=== PATIENT | male | born 1985 | race Caucasian/White ===

== ENCOUNTER 2020-03-26 17:16 | Emergency (ER) | payer BC, SELFPAY ==
[2020-03-26 17:59] VITALS: BP 144/86; PULSE 99; RESP 18; O2SAT 99; BMI 23.7
--- NOTE | 2020-03-26 18:09 | HMH.EDUTC ---
[facility] [place] Disposition Clinical Impression: Exposure to COVID-19 virus Disposition: Home, Self-Care Condition on Discharge: Good Instructions: Preventing the Spread of Coronavirus Discharge Instructions Additional Instructions: Drink plenty of fluids. Take tylenol for pain or fever. Follow up with your regular doctor. GO TO THE ER FOR ANY WORSENING SYMPTOMS Referrals: Jake Mckay MD [Primary Care Provider] - Time of Disposition: 18:10 Medical Decision Making - Medical Records Medical records reviewed: No: I reviewed the patient's medical records. - Calvin Inquiry Pt receiving controlled substance: No Vital Signs: 03/26/20 17:59 03/26/20 18:27 Temperature 98.1 F Temperature Source Oral Pulse Rate 99 H Pulse Rate [Radial] 99 H Respiratory Rate 18 18 Blood Pressure 144/86 H Blood Pressure [Right Arm] 144/86 H Blood Pressure Mean [Right Arm] 105 Blood Pressure Source Automatic Cuff Blood Pressure Source [Right Arm] Automatic Cuff Blood Pressure Position Sitting Blood Pressure Position [Right Arm] Sitting 02 Sat by Pulse Oximetry 99 Oxygen Delivery Method Room Air Room Air Orders (Tests/Meds): ORDERS Category Date Time Status Covid-19 Nasal PCR ([facility]) Routine Lab 03/26/20 17:44 Received [facility] [place] HPI - General Stated complaint: COVID TEST No symptoms Time Seen by Provider: 03/26/20 18:09 Mode of Arrival: Ambulatory Source of Information: Patient Limitations: No Limitations Description of Symptoms (Recalled from Triage Doc. by RN): covid test HEENT Symptoms (Recalled from RN notes): No Resp Symptoms (Recalled from RN notes): No Skin Symptoms (Recalled from RN notes): No MS Symptoms (Recalled from RN notes): No Functional Status (Recalled from RN notes): wnl - History of Present Illness Provider Complaint: He was exposed to covid thru a coworker. He has no symptoms. - Related Data Previous Rx's Medication Instructions Recorded Triamcinolone Acetonide [Kenalog 1 applicatio TOPICAL TID PRN #30 03/18/18 0.1% cream 30gm tube] cream..g. Allergies Allergy/AdvReac Type Severity Reaction Status Date / Time No Known Allergies Allergy Verified 03/18/18 19:22 - Worker's Comp Is this a Worker's Comp case?: No [facility] History - Hepatitis A Screen Drug use history?: No High risk sexual behaviors?: No History of sexually transmitted infection?: No Currently employed?: No Childcare worker?: No Do you have indoor plumbing?: Yes Do you have electricity?: Yes Attestation statement:: This patient has been screened for Hepatitis A risk factors. I have reviewed the patient's past medical history: Yes Medical History: Denies:: Diabetes Mellitus Type 1, Diabetes Mellitus Type 2, Hypertension Other Surgeries: Yes: Hernia Repair - Social History Smoking Status: Current every day smoker Tobacco Type: cigarettes # Packs/Day (cigarettes): 1 Alcohol Intake: never Occupational Status: employed Housing: house ROS Obtained: Yes All systems reviewed & no additional complaints - Constitutional Constitutional: Reports system reviewed and no additional complaints, except as docu - Eyes Eyes: Reports system reviewed and no additional complaints, except as docu - ENT Ears, Nose, Mouth, and Throat: Reports system reviewed and no additional complaints, except as docu - Cardiovascular Cardiovascular: Reports system reviewed and no additional complaints, except as docu - Respiratory Respiratory: Yes system reviewed and no additional complaints, except as docu - Gastrointestinal Gastrointestingal: Reports: system reviewed and no additional complaints, except as docu Physical Exam - General General appearance: alert, in no apparent distress - Head Head exam: atraumatic, normocephalic, normal inspection - Eye Eye exam: Present: normal appearance, PERRL, EOMI - ENT ENT exam: Present: normal exam, normal oropharynx, mucous membranes moist, TM's normal
[2020-03-26 18:27] VITALS: BP 144/86; PULSE 99; RESP 18; TEMP 36.7; O2SAT 99
== END 2020-03-26 18:28 | disposition home or self-care (01) ==
PROVIDERS: Emergency Provider Nurse Practitioner Family; PCP Family Medicine
DX: Z20.828 Contact with and (suspected) exposure to other viral communicable diseases (principal); F17.210 Nicotine dependence, cigarettes, uncomplicated
CPT/HCPCS: 99201; U0003

== ENCOUNTER 2020-04-02 19:28 | Emergency (ER) | payer BC, SELFPAY ==
[2020-04-02 19:30] VITALS: BP 119/71; PULSE 106; RESP 19; TEMP 38.4; O2SAT 99; BMI 23.7
--- NOTE | 2020-04-02 19:56 | HMH.EDUTC ---
[facility] [place] Clinical Impression: Exposure to COVID-19 virus, Viral syndrome Disposition: Home, Self-Care Condition on Discharge: Good Instructions: DI for Viral Syndrome, Preventing the Spread of Coronavirus Discharge Instructions Additional Instructions: Drink plenty of fluids. Take tylenol for pain or fever. Return if you begin to have difficulty breathing. Follow up with your regular doctor. GO TO THE ER FOR ANY WORSENING SYMPTOMS Referrals: Jake Mckay MD [Primary Care Provider] - Time of Disposition: 19:57 Medical Decision Making - Medical Records Medical records reviewed: No: I reviewed the patient's medical records. - Calvin Inquiry Pt receiving controlled substance: No Vital Signs: 04/02/20 19:30 04/02/20 20:05 Temperature 101.1 F H 101.1 F H Temperature Source Oral Pulse Rate 106 H Pulse Rate [Right Brachial] 106 H Respiratory Rate 19 19 Blood Pressure 119/71 Blood Pressure [Right Arm] 119/71 Blood Pressure Mean [Right Arm] 87 Blood Pressure Source [Right Arm] Automatic Cuff Blood Pressure Position [Right Arm] Sitting 02 Sat by Pulse Oximetry 99 Oxygen Delivery Method Room Air - Lab Data Lab Results 04/02/20 19:45: Influenza Type A Ag Negative, Influenza Type B Ag Negative Orders (Tests/Meds): ED MEDICATIONS Discontinued Medications Generic Name Dose Route Start Last Admin Trade Name Hanna PRN Reason Stop Dose Admin Acetaminophen 1,000 mg 04/02/20 19:58 04/02/20 20:00 Acetaminophen 500mg Tab PO 04/02/20 19:59 1,000 mg ONCE ONE Administration ORDERS Category Date Time Status Covid-19 Nasal PCR Sendout Stat Lab 04/02/20 19:35 [place] [facility] [place] - General Stated complaint: covid test Time Seen by Provider: 04/02/20 19:56 Mode of Arrival: Ambulatory Source of Information: Patient Limitations: No Limitations Description of Symptoms (Recalled from Triage Doc. by RN): PATIENT REQUESTING COVID TEST; NO SYMPTOMS OR KNOWN DIRECT EXPOSURE HEENT Symptoms (Recalled from RN notes): No Resp Symptoms (Recalled from RN notes): No Skin Symptoms (Recalled from RN notes): No MS Symptoms (Recalled from RN notes): No Functional Status (Recalled from RN notes): WNL - History of Present Illness Provider Complaint: He is here needing a covid test. He denies any known exposure. He has been running a fever this evening. He denies any other symptoms. - Related Data Allergies Allergy/AdvReac Type Severity Reaction Status Date / Time No Known Allergies Allergy Verified 03/18/18 19:22 - Worker's Comp Is this a Worker's Comp case?: No [facility] History - Hepatitis A Screen Drug use history?: No High risk sexual behaviors?: No History of sexually transmitted infection?: No Currently employed?: No Childcare worker?: No Do you have indoor plumbing?: Yes Do you have electricity?: Yes Attestation statement:: This patient has been screened for Hepatitis A risk factors. I have reviewed the patient's past medical history: Yes Medical History: Denies:: Diabetes Mellitus Type 1, Diabetes Mellitus Type 2, Hypertension Other Surgeries: Yes: Hernia Repair - Social History Smoking Status: Current every day smoker Tobacco Type: cigarettes # Packs/Day (cigarettes): 1 Alcohol Intake: never Occupational Status: other Housing: house ROS Obtained: Yes All systems reviewed & no additional complaints - Constitutional Constitutional: Denies chills, Reports fever(s) - Eyes Eyes: Reports system reviewed and no additional complaints, except as docu - ENT Ears, Nose, Mouth, and Throat: Reports system reviewed and no additional complaints, except as docu - Cardiovascular Cardiovascular: Reports system reviewed and no additional complaints, except as docu - Respiratory Respiratory: Yes system reviewed and no additional complaints, except as docu - Gastrointestinal Gastrointestingal: Reports: system reviewed and no additional comp
[2020-04-02 20:03] LABS: UTC Influenza A Antigen Negative (Negative); UTC Influenza B Antigen Negative (Negative)
[2020-04-02 20:05] VITALS: BP 119/71; PULSE 106; RESP 19; TEMP 38.4; O2SAT 99
--- NOTE | 2020-04-04 13:13 | PC.NURSE ---
patient notified of positive covid test
[2020-04-04 15:45] LABS: Covid-19 Nasal PCR Sendout UK Detected
== END 2020-04-02 20:06 | disposition home or self-care (01) ==
PROVIDERS: Emergency Provider Nurse Practitioner Family; PCP Family Medicine
DX: U07.1 COVID-19 (principal); F17.210 Nicotine dependence, cigarettes, uncomplicated
CPT/HCPCS: 87804; 99201; U0003

== ENCOUNTER → 2022-02-21 10:00 | Outpatient (CLI) | payer BC, SELFPAY ==
--- NOTE | 2022-02-21 10:13 | XR_ITS ---
FINAL REPORT CLINICAL HISTORY: INJURY TO LOWER BACK,LUMBAGO W/SCIATICA grabbed motor from falling off the [place] and back popped..pain since sunday FINDINGS: LUMBAR SPINE 5 views of the lumbar spine were obtained. There is no evidence of fracture or dislocation. There is mild leftward curvature. The vertebral alignment is normal. There are mild degenerative changes with osteophytes. There is partial sacralization of L5 on the right. No paraspinous soft tissue abnormalities identified. IMPRESSION: Mild degenerative changes with no acute bony abnormality. Reviewed, Interpreted and Dictated by George Hess III, MD Transcribed by Meghan Barlow Authenticated and [facility]
== END ==
PROVIDERS: PCP Nurse Practitioner Family; Visit Provider Nurse Practitioner Family
DX: M54.42 Lumbago with sciatica, left side (principal); M54.41 Lumbago with sciatica, right side; S39.92XA Unspecified injury of lower back, initial encounter
CPT/HCPCS: 72110

== ENCOUNTER → 2022-03-31 16:41 | Outpatient (CLI) | payer BC, SELFPAY ==
--- NOTE | 2022-03-31 16:45 | MR_ITS ---
PROCEDURE INFORMATION: Exam: MR Lumbar Spine Without Contrast Exam date and time: 03/31/2022 5:13 PM Age: 36 years old Clinical indication: Low back pain; Additional info: Low back pain. Pain worse on left side. Left leg pain to feet. TECHNIQUE: Imaging protocol: Magnetic resonance imaging of the lumbar spine without contrast. COMPARISON: CR XR LUMBAR SPINE MIN 4V 02/21/2022 10:34 AM FINDINGS: Bones/joints: There are 5 lumbar type vertebral bodies. There is straightening of normal lumbar lordosis. No acute fracture or suspicious marrow replacing lesion. Spinal cord: The conus terminates at T12-L1. There is multilevel degenerative disc disease with disc desiccation at L2-L3, L3-L4, and L4-L5. T12-L1: No significant disc bulge. No facet arthropathy. No neural foraminal or central canal stenosis. L1-L2: No significant disc bulge. No facet arthropathy. No central canal or neural stenosis. L2-L3: Mild circumferential disc bulge. No facet arthropathy. No central canal or neural foraminal stenosis. L3-L4: Mild circumferential disc bulge. Mild bilateral facet arthropathy. No central canal stenosis. Mild right neural foraminal stenosis. Patent left neural foramen. L4-L5: Severe circumferential disc bulge with left lateral recess disc protrusion. Moderate bilateral facet arthrosis. Mild central canal stenosis. Severe left neural foraminal stenosis. Moderate right neural foraminal stenosis. L5-S1: No significant disc bulge. No facet arthropathy. No neural foraminal or central canal stenosis. Soft tissues: Unremarkable. IMPRESSIONS: At the L4-L5 level, there is severe circumferential disc bulge with left lateral recess disc protrusion with severe left neural foraminal stenosis and moderate right neural foraminal stenosis.
--- NOTE | 2022-03-31 16:57 | XR_ITS ---
PROCEDURE INFORMATION: Exam: XR Orbits, MR Screening Exam date and time: 03/31/2022 4:59 PM Age: 36 years old Clinical indication: Other: Prior HX metal in eyes. ; Additional info: Metals in eyes prior history metal in right eye. Screening for mri. Patient is waiting. TECHNIQUE: Imaging protocol: XR of the orbits. Exam was performed for MR screening. Views: 1 or 2 views COMPARISON: No relevant prior studies available. FINDINGS: Sinuses: Well aerated. No opacification. Bones/joints: No fracture. Soft tissues: Unremarkable. Radiopaque device or foreign body: None. No evidence of device or foreign body. No visible contraindication to MRI on this exam. IMPRESSION: No visible contraindication to MRI on this exam.
== END ==
PROVIDERS: PCP Nurse Practitioner Family; Visit Provider Nurse Practitioner Family
DX: M54.42 Lumbago with sciatica, left side (principal); M54.41 Lumbago with sciatica, right side; H05.53 Retained (old) foreign body following penetrating wound of bilateral orbits
CPT/HCPCS: 70200; 72148; 76376

== ENCOUNTER 2023-11-26 20:09 | Emergency (ER) | payer SELFPAY ==
[2023-11-26 20:10] VITALS: BP 128/73; PULSE 92; RESP 18; TEMP 36.7; O2SAT 99; BMI 23.6
--- NOTE | 2023-11-26 20:20 | PC.NURSE ---
pt has been rounded on and has been hooked up to vitals.
--- NOTE | 2023-11-26 20:28 | ED_ITS ---
Discharge Plan Disposition Patient Disposition: Home, Self-Care Condition: Good Referrals Follow up/Referrals: Mil Sethi DO [Staff Physician] - See instructions Nona Iglesias APRN [Primary Care Provider] - See instructions Activity Restrictions/Add. Instructions Additional Instructions/Restrictions: Please take Tylenol alternating every 4 hours with Motrin as needed for pain and swelling. I have referred you to Dr. Sethi. Please call tomorrow to make an appointment. Return to ER for any worsening signs or symptoms. Clinical Impressions Clinical Impression: Acute pain of right knee Stand Alone Forms Stand Alone Forms: Work/School Release Instructions Patient Instructions: DI for Knee Pain Discharge ED Provider: Alcon Schaffer General Adult HPI <MAIK Cortés - Last Filed: 11/26/23 22:07> General Chief complaint: Extremity Injury, Lower Stated complaint: AO 11/25 RT knee inj Time Seen by Provider: 11/26/23 20:28 History of Present Illness HPI narrative: Patient presents for evaluation of a right knee injury. Patient states he was working today and jumped off a truck landing and felt that his right knee bent toward the inside. He was able to bear weight and finishes working today however he reports decreased ability to bend his or straighten his knee without significant pain. Related Data Allergies Allergy/AdvReac Type Severity Reaction Status Date / Time No Known Allergies Allergy Verified 03/18/18 19:22 PFSH <MAIK Cortés - Last Filed: 11/26/23 22:07> [facility] Disclaimer: The information contained in this section may have been updated after the patient was seen, as this information can be updated by other users. Social History Smoking Status: Current every day smoker tobacco type: cigarettes packs per day: 1 second hand exposure: Yes alcohol intake: never current occupational status: other Travel in the last 8 weeks: None housing: house <MAIK Cortés - Last Filed: 11/26/23 22:07> ROS Obtained: Yes Systems reviewed as appropriate & no additional complaints except as documented Physical Exam <MAIK Cortés - Last Filed: 11/26/23 22:07> General General appearance: alert and in no apparent distress Respiratory Respiratory exam: Present normal lung sounds bilaterally Cardiovascular Cardiovascular exam: Present regular rate and normal rhythm Expanded Lower Extremity Exam Right: Leg image: 2 1. Tenderness to palpation at the joint margins but no bony deformity. More more tender on the medial aspect. No ecchymosis or edema. Knee exam: Present normal inspection, tenderness, swelling, pain with valgus and pain with varus; Absent full ROM, ecchymosis, crepitus, anterior drawer sign or posterior draw sign Neurological Exam Neurological exam: Present alert and oriented X3 Skin Skin exam: Present dry Medical Decision Making <MAIK Cortés - Last Filed: 11/26/23 22:07> Medical Records Medical records reviewed: Yes I reviewed the patient's medical records. Calvin Inquiry Pt receiving controlled substance: No Vital Signs: 11/26/23 20:10 Temperature 98.1 F Temperature Source Oral Pulse Rate [Left Radial] 92 H Respiratory Rate 18 Blood Pressure [Left Arm] 128/73 Blood Pressure Mean [Left Arm] 91 Blood Pressure Source [Left Arm] Automatic Cuff Blood Pressure Position [Left Arm] Sitting 02 Sat by Pulse Oximetry 99 Oxygen Delivery Method Room Air Orders (Tests/Meds): ED MEDICATIONS Discontinued Medications Generic Name Dose Route Start Last Admin Trade Name Adelfoq PRN Reason Stop Dose Admin Acetaminophen 1,000 mg 11/26/23 20:57 11/26/23 21:29 Acetaminophen 500mg Tab PO 11/26/23 20:58 Not Given ONCE ONE Ibuprofen 800 mg 11/26/23 20:57 11/26/23 21:29 Ibuprofen 400 Mg Tablet PO 11/26/23 20:58 Not Given ONCE ONE ORDERS Category Date Time Status Fibula/tibia XR right 2 views [XR tibia fibula RT 2V] Exams 11/26/23 21:00 Completed Stat XR knee RT 3V Stat Exams 11/26/23 21:00 Completed Medical Decision Narrative: In summary patient is a 37-year-old male who presents to the emergency department for evaluation of right knee injury. Patient is hemodynamically stable upon arrival, afebrile. Physical exam shows tenderness to palpation about the entirety of the anterior portion of the right knee joint however there is no palpable bony deformity. Patient has painful range of motion without joint laxity. Patient has evidence of ecchymosis but does have fullness of the soft tissues at the joint lines suggesting a joint effusion possibly. Patient is neurovascular intact distally with palpable PT and DP. Differential diagnosis includes fracture versus ligamentous injury versus tendinous injury versus connective tissue injury versus fracture. Initial workup will be conducted with film x-rays. Initial interventions include Tylenol Motrin. Initial workup reviewed by me shows no acute fracture via my informal interpretation of his plain film imaging.. Upon repeat evaluation had significant reduction in his discomfort with Tylenol Motrin.. Given this patient be given Jourdan wrap and crutches with referral to orthopedics. <Alcon Schaffer MD - Last Filed: 11/26/23 22:19> Vital Signs: 11/26/23 20:10 Temperature 98.1 F Temperature Source Oral Pulse Rate [Left Radial] 92 H Respiratory Rate 18 Blood Pressure [Left Arm] 128/73 Blood Pressure Mean [Left Arm] 91 Blood Pressure Source [Left Arm] Automatic Cuff Blood Pressure Position [Left Arm] Sitting 02 Sat by Pulse Oximetry 99 Oxygen Delivery Method Room Air Orders (Tests/Meds): ED MEDICATIONS Discontinued Medications Generic Name Dose Route Start Last Admin Trade Name Freq PRN Reason Stop Dose Admin Acetaminophen 1,000 mg 11/26/23 20:57 11/26/23 21:29 Acetaminophen 500mg Tab PO 11/26/23 20:58 Not Given ONCE ONE Ibuprofen 800 mg 11/26/23 20:57 11/26/23 21:29 Ibuprofen 400 Mg Tablet PO 11/26/23 20:58 Not Given ONCE ONE ORDERS Category Date Time Status Fibula/tibia XR right 2 views [XR tibia fibula RT 2V] Exams 11/26/23 21:00 Completed Stat XR knee RT 3V Stat Exams 11/26/23 21:00 Completed Medical Decision Narrative: In summary patient is a 37-year-old male who presents to the emergency department for evaluation of right knee injury. Patient is hemodynamically stable upon arrival, afebrile. Physical exam shows tenderness to palpation about the entirety of the anterior portion of the right knee joint however there is no palpable bony deformity. Patient has painful range of motion without joint laxity. Patient has evidence of ecchymosis but does have fullness of the soft tissues at the joint lines suggesting a joint effusion possibly. Patient is neurovascular intact distally with palpable PT and DP. Differential diagnosis includes fracture versus ligamentous injury versus tendinous injury versus connective tissue injury versus fracture. Initial workup will be conducted with film x-rays. Initial interventions include Tylenol Motrin. Initial workup reviewed by me shows no acute fracture via my informal interpretation of his plain film imaging.. Upon repeat evaluation had significant reduction in his discomfort with Tylenol Motrin.. Given this patient be given Jourdan wrap and crutches with referral to orthopedics. I was consulted by the AKIRA, and we discussed the complexity of the problems being addressed. I approved the treatment and management plan for this patient's care in the emergency department, thus performing a substantive portion of the medical decision making. Alcon Schaffer MD Critical Care <MAIK Cortés - Last Filed: 11/26/23 22:07> Critical Care Time Critical Care Time: No
--- NOTE | 2023-11-26 21:00 | XR_ITS ---
PROCEDURE INFORMATION: Exam: XR Right Tibia and Fibula Exam date and time: 11/26/2023 8:57 PM Age: 37 years old Clinical indication: Injury or trauma; Other: Jumped off dumpster; Swelling (edema); Knee; Right; Additional info: Trauma/pain TECHNIQUE: Imaging protocol: Radiologic exam of the right tibia and fibula. Views: 2 views. Total images: 4 COMPARISON: CR Knee R 11/26/2023 8:53 PM FINDINGS: Bones/joints: No acute fracture or joint dislocation. No concerning bone lesions or calcifications. Joint spaces are well maintained. No significant joint effusions. Benign sclerotic bone island proximal tibia. Soft tissues: Unremarkable soft tissues. IMPRESSION: Negative right tibia and fibula.
--- NOTE | 2023-11-26 21:00 | XR_ITS ---
PROCEDURE INFORMATION: Exam: XR Right Knee Exam date and time: 11/26/2023 8:53 PM Age: 37 years old Clinical indication: Injury or trauma; Other: Jumped off dumpster; Swelling (edema); Knee; Right; Additional info: Pain/trauma TECHNIQUE: Imaging protocol: Radiologic exam of the right knee. Views: 3 views. Total images: 3 COMPARISON: No relevant prior studies available. FINDINGS: Bones/joints: No acute fracture, joint dislocation, or joint effusion. Joint spaces are well maintained. No concerning bone lesions. Benign sclerotic bone island proximal tibia. Soft tissues: Unremarkable soft tissues. IMPRESSION: Negative right knee.
--- NOTE | 2023-11-26 21:16 | PC.NURSE ---
Attempted to give pt medications ordered. Pt is refusing any meds at this time. and RN aware. CR
--- NOTE | 2023-11-26 22:12 | PC.NURSE ---
Pt given gwendolyn wrap and instructions on care. Pt already has crutches but gien instructions on use. CR
[2023-11-26 22:15] VITALS: BP 126/84; PULSE 79; RESP 16; TEMP 36.8; O2SAT 98
== END 2023-11-26 22:15 | disposition home or self-care (01) ==
PROVIDERS: Emergency Provider Emergency Medicine; PCP Nurse Practitioner Family
DX: M25.561 Pain in right knee (principal); F17.210 Nicotine dependence, cigarettes, uncomplicated; W17.89XA Other fall from one level to another, initial encounter
CPT/HCPCS: 73562; 73590; 99283